=== PATIENT | female | born 1940 | race Caucasian/White ===

== ENCOUNTER → 2017-03-25 | Outpatient (CLI) | payer OTHER ==
--- NOTE | 2017-03-25 13:03 | PCVCIMAG ---
EXAM: ABDOMINAL ULTRASOUND COMPLETE INDICATION: Abdominal pain FINDINGS: Gallbladder: 5.5 x 5.6 mm probable polyp versus nonshadowing/nonmobile stone in the gallbladder fundus. No evidence of shadowing gallstones. No wall thickening or abnormal pericholecystic fluid. Liver: Normal in size measuring 12.2 cm in length. No focal masses. Bile ducts: No intra or extra hepatic bile duct dilatation. The common bile duct measures 3.4 mm. Pancreas: Unremarkable where seen. Spleen: Normal in size measuring maximum dimension of 8.9 cm. Right kidney: No hydronephrosis. Length measures 9.5 cm. Left kidney: No hydronephrosis. Length measures 10.1 cm. Inferior vena cava: Normal in size where seen. Aorta: Normal in caliber where seen. IMPRESSION: No definite cholelithiasis. 5.6 mm probable polyp in the gallbladder fundus. Interval follow-up is suggested. LOC:[place] [id number]
== END | disposition home or self-care (01) ==
LOC: PCVCCLINIC 10:39
PROVIDERS: ATTEND Internal Medicine Cardiovascular Disease
DX: K21.9 Gastro-esophageal reflux disease without esophagitis (principal); I10 Essential (primary) hypertension; E78.00 Pure hypercholesterolemia, unspecified; Z90.710 Acquired absence of both cervix and uterus; Z79.899 Other long term (current) drug therapy; Z88.2 Allergy status to sulfonamides; Z91.041 Radiographic dye allergy status; Z88.6 Allergy status to analgesic agent
CPT/HCPCS: 76700; 80061; 93005; G0463

== ENCOUNTER → 2017-09-15 | Outpatient (CLI) | payer OTHER | END | disposition home or self-care (01) | LOC: PCVCCLINIC 10:00 | DX: I10 Essential (primary) hypertension (principal); E78.00 Pure hypercholesterolemia, unspecified; K21.9 Gastro-esophageal reflux disease without esophagitis; K82.4 Cholesterolosis of gallbladder; R94.31 Abnormal electrocardiogram [ECG] [EKG]; Z79.899 Other long term (current) drug therapy | CPT/HCPCS: 80061; 93005; G0463 ==

== ENCOUNTER → 2018-07-21 | Outpatient (CLI) | payer OTHER ==
--- NOTE | 2018-07-21 11:13 | PCVCIMAG ---
EXAM: ABDOMINAL ULTRASOUND COMPLETE INDICATION: Gallbladder polyp. FINDINGS: Gallbladder: No gallstones. No wall thickening or abnormal pericholecystic fluid. 6.2 mm polyp in the gallbladder fundus is unchanged since March 2017 study. Liver: Normal in size measuring 12.6 cm in length. No focal masses. Bile ducts: No intra or extra hepatic bile duct dilatation. The common bile duct measures 7.6 mm. Pancreas: Unremarkable where seen. Spleen: Normal in size measuring 8.9 cm in greatest dimension. No focal masses. Right kidney: No hydronephrosis. Length measures 10.1 cm. Left kidney: No hydronephrosis. Length measures 10.1 cm. Inferior vena cava: Normal in size where seen. Aorta: Normal in caliber where seen. IMPRESSION: 6.2 mm polyp in the gallbladder fundus is unchanged since 2016 study. Abdomen otherwise negative. LOC:[id number]
== END | disposition home or self-care (01) ==
LOC: PCVCIMAG 10:15
PROVIDERS: ATTEND Internal Medicine Cardiovascular Disease
DX: K82.4 Cholesterolosis of gallbladder (principal)
CPT/HCPCS: 76700

== ENCOUNTER → 2018-09-07 | Outpatient (CLI) | payer OTHER ==
--- NOTE | 2018-09-07 12:47 | PCVCIMAG ---
APPROVED REPORT Study performed: 09/07/2018 10:12:01 Exam: Stress Echocardiogram Indication: Chest pressure, htn, hlp Patient Location: Echo lab Stress Nurse: Marlene Lemon RN Status: routine Ht: 5 ft 2 in HR: 65 bpm BP: 136/80 mmHg Rhythm: NSR Procedure The patient underwent an Exercise Stress Test using the Maximiliano Protocol. Blood pressure, heart rate, and EKG were monitored. An Echocardiogram was performed by appraisal technician in four stages in quad fashion. At peak stress, four selected images were obtained and placed side by side with resting images for comparison. Stress Test Details Stress Test: Exercise stress testing was performed using a Maximiliano protocol. HR Resting HR: 65 bpmMax Heart Rate (APMHR): 141 bpm Max HR Achieved: 133 bpmTarget HR (85% APMHR): 119 bpm % of APMHR: 94 Recovery HR: 88 bpm HR response to stress: Normal HR response to stress BP Resting BP: 136/80 mmHg Max BP: 160/70 mmHg Recovery BP: 140/70 mmHg BP response to stress: Normal blood pressure response to stress. ECG Resting ECG: Sinus Rhythm Stress ECG: Sinus Rhythm ST Change: Normal Arrhythmia: PACs Recovery ECG: Sinus Rhythm Recovery ST Change: Normal Recovery Arrhythmia: None Clinical Reason for Termination: Maximal effort Stress Symptoms: Fatigue Exercise duration: 9 min sec Highest Stage Achieved: Stage 3: 3.4 mph at 14% grade. Exercise capacity: 10.1 METs Overall Exercise Capacity for Age: Excellent Scale: Active Angina Score: None Pre-Stress Echo The resting Echocardiogram showed normal left ventricular contractility with an estimated Ejection Fraction of about >55%. Normal wall motion in all segments on baseline images. Post-Stress Echo The stress Echocardiogram showed normal left ventricular contractility with an estimated Ejection Fraction of about 65%. Normal augmentation of wall motion in all segments on post stress images. Clinical No clinical or ECG evidence for ischemia. Conclusion Clinical Response: Non-ischemic Exercise Capacity: Superior Stress ECG Response: Non-ischemic Stress Echo Images: Non-ischemic The left ventricle is normal in size and wall thickness in both the rest and stress images. Other Information Study Quality: Adequate <Conclusion> The left ventricle is normal in size and wall thickness in both the rest and stress images.
== END | disposition home or self-care (01) ==
LOC: PCVCIMAG 12:48
PROVIDERS: ATTEND Internal Medicine Cardiovascular Disease
DX: R07.89 Other chest pain (principal); I10 Essential (primary) hypertension; E78.5 Hyperlipidemia, unspecified; E78.00 Pure hypercholesterolemia, unspecified
CPT/HCPCS: 93325; 93351

== ENCOUNTER → 2019-05-11 | Outpatient (CLI) | payer OTHER | END | disposition home or self-care (01) | LOC: PCVCCLINIC 16:34 | PROVIDERS: ATTEND Internal Medicine Cardiovascular Disease | DX: E78.00 Pure hypercholesterolemia, unspecified (principal); E78.5 Hyperlipidemia, unspecified; I10 Essential (primary) hypertension; K21.9 Gastro-esophageal reflux disease without esophagitis | CPT/HCPCS: 36415; 80061; 93005; G0463 ==